=== PATIENT | female | born 1990 | race Caucasian/White ===

== ENCOUNTER 2019-07-01 20:47 | Emergency (ER) | payer OTHER ==
[~2019-07-01] VITALS: Ht 157.5 cm; Wt 81.8 kg
[~2019-07-01 20:47] MED LIST: PNV1CAPS42 PO
[2019-07-01] MEDS ORDERED: birth control PO (20:59)
[2019-07-01 23:05] VITALS: BP 110/67
[2019-07-01] MEDS ORDERED: DEXAMETHASONE 4 MG TABLET PO ONE (23:15)
[2019-07-01] MEDS ORDERED: IBUPROFEN 400 MG TABLET PO ONE (23:15)
[2019-07-01] MEDS ORDERED: CLINDAMYCIN HCL 150 MG CAPSULE PO ONE (23:15)
== END 2019-07-01 23:40 | disposition home or self-care (01) ==
LOC: EMS 20:48
DX: R07.0 Pain in throat (principal); Z88.1 Allergy status to other antibiotic agents
CPT/HCPCS: 81025; 87430; 99284; J8540

== ENCOUNTER 2022-05-19 11:45 | Emergency (ER) | payer OTHER ==
[~2022-05-19] VITALS: Ht 157.5 cm; Wt 92.7 kg
[~2022-05-19 11:45] MED LIST changes: -PNV1CAPS42 PO; +birth control PO
[2022-05-19 12:44] LABS: BASOPHILS % (AUTO) 0.2 % (0.0-2.0); EOSINOPHILS % (AUTO) 0.3 % (1.0-6.0); HEMATOCRIT 34.7 % (36-46); HEMOGLOBIN 11.9 g/dL (12.0-16.0); LYMPHOCYTES # (AUTO) 1.5 K/uL (1.0-4.8); LYMPHOCYTES % (AUTO) 36.8 % (22.0-44.0); MEAN CORPUSCULAR HEMOGLOBIN 29.5 pg (26.0-34.0); MEAN CORPUSCULAR HGB CONC 34.1 G/dL (31.0-37.0); MEAN CORPUSCULAR VOLUME 86 fL (80-100); MONOCYTES # (AUTO) 0.7 K/uL (0.1-1.0); MONOCYTES % (AUTO) 18.6 % (2.0-9.0); NEUTROPHILS # (AUTO) 1.8 K/uL (1.8-7.7); NEUTROPHILS % (AUTO) 44.1 % (40.0-70.0); PLATELET COUNT (AUTO) 175 K/uL (150-450); RED BLOOD CELL COUNT(AUTO) 4.02 MIL/uL (4.00-5.20); RED CELL DISTRIBUTION WIDTH 13.6 % (11.5-14.5)
[2022-05-19 13:04] LABS: ALANINE AMINOTRANSFERASE 36 U/L (12-78); ALBUMIN 3.4 g/dL (3.4-5.0); ALKALINE PHOSPHATASE 68 U/L (46-116); ANION GAP 7 mmol/L (8-16); ASPARTATE AMINOTRANSFERASE 21 U/L (15-37); BILIRUBIN,TOTAL 0.5 mg/dL (0.1-1.0); CALCIUM, TOTAL 8.2 mg/dL (8.8-10.5); CARBON DIOXIDE 28 mmol/L (22-29); CHLORIDE 102 mmol/L (98-107); CREATININE 0.74 mg/dL (0.60-1.30); GLUCOSE,RANDOM 93 mg/dL (70-110); HCG,QUANTITATIVE < 1 mIU/mL (0-6); LIPASE 52 U/L (73-393); SODIUM SERUM 137 mmol/L (136-145); TOTAL PROTEIN, SERUM 7.4 g/dL (6.4-8.2); UREA NITROGEN, BLOOD 10 mg/dL (7-18)
[2022-05-19 13:10] LABS: GLOMERULAR FILTR. RATE CALC > 60 mL/min (>60); POTASSIUM 2.9 mmol/L (3.5-5.1)
[2022-05-19 13:15] LABS: APPEARANCE,URINE HAZY (CLEAR); BILIRUBIN,URINE NEGATIVE (NEGATIVE); GLUCOSE, URINE (UA) NEGATIVE (NEGATIVE); LEUKOCYTE ESTERASE ,URINE NEGATIVE (NEGATIVE); NITRATE,URINE NEGATIVE (NEGATIVE); OCCULT BLOOD,URINE TRACE (NEGATIVE); PROTEIN,URINE 30-70 mg/dL (NEGATIVE); SPECIFIC GRAVITIY, URINE 1.025 (1.003-1.030); UROBILINOGEN,URINE <=1.0 mg/dL (<=1.0)
[2022-05-19 13:49] LABS: RBC,URINE 0-2 /HPF (0-2)
[2022-05-19 13:50] LABS: BACTERIA,URINE Many /HPF (None Seen); SQUAMOUS EPITHELIAL CELL,UR Many /LPF (None Seen); WBC,URINE 0-2 /HPF (0-5)
[2022-05-19] MEDS ORDERED: SODIUM CHLORIDE 0.9% 1,000 ML IV ONE (14:00)
[2022-05-19] MEDS ORDERED: KETOROLAC TROMETHAMINE 30 MG/ML VIAL IVP ONE (14:00)
[2022-05-19] MEDS ORDERED: ONDANSETRON HCL 4 MG/2 ML VIAL IVP ONE (14:00)
[2022-05-19] MEDS ORDERED: ACETAMINOPHEN 500 MG TABLET PO ONE (14:15)
[2022-05-19] MEDS ORDERED: DIPHENOXYLATE/ATROP 2.5-0.025 MG TABLET PO ONE (14:15)
[2022-05-19] MEDS ORDERED: POTASSIUM CHLORIDE 10% 40 MEQ/30 ML LIQUID UDCUP PO ONE (15:00)
[2022-05-19] MEDS ORDERED: OMEP20 PO (15:21)
[2022-05-19] MEDS ORDERED: ONDA-104 PO (15:21)
[2022-05-19] MEDS ORDERED: DIPH-654 PO (15:21)
[2022-05-19] MEDS ORDERED: ACET-66 PO (15:21)
[2022-05-19] MEDS ORDERED: MAG30ORA11 PO (15:21)
[2022-05-19 15:37] VITALS: BP 110/71
== END 2022-05-19 15:59 | disposition home or self-care (01) ==
LOC: EMS 11:45
DX: K52.9 Noninfective gastroenteritis and colitis, unspecified (principal); Z90.89 Acquired absence of other organs
CPT/HCPCS: 99284; 96374; 96361; 96375; 80053; 81001; 83690; 84702; 85025; 36415; 87086; J1885; J2405; J7030